=== PATIENT | female | born 1965 | race Asian ===

== ENCOUNTER 2023-11-27 10:51 | Day surgery (SDC) | payer OTHER ==
[2023-11-22 09:28] VITALS: BMI 27.7
[2023-11-27] MEDS ORDERED: CYCLOPENTOLATE 2% OPHTH SOLN 2 ML BOTTLE ONE (11:10)
[2023-11-27] MEDS ORDERED: TROPICAMIDE 1% OPHTH SOLN 15 ML BOTTLE ONE (11:11)
[2023-11-27] MEDS ORDERED: CIPROFLOXACIN 0.3% EYE DROPS 5 ML BOTTLE ONE (11:11)
[2023-11-27] MEDS ORDERED: PHENYLEPHRINE 2.5% OPTHALMIC DROP 2ML BOTTLE ONE (11:11)
[2023-11-27] MEDS: CYCLOPENTOLATE 2% OPHTH SOLN 2 ML BOTTLE OD ONE ×3 (11:20→11:29)
[2023-11-27] MEDS: CIPROFLOXACIN 0.3% EYE DROPS 5 ML BOTTLE OD ONE ×3 (11:20→11:30)
[2023-11-27] MEDS: PHENYLEPHRINE 2.5% OPHTH SOLN 15 ML BOTTLE OD ONE ×3 (11:20→11:30)
[2023-11-27] MEDS: TROPICAMIDE 1% OPHTH SOLN 15 ML BOTTLE OD ONE ×3 (11:20→11:30)
[2023-11-27] MEDS ORDERED: BSS (NA/CA/MG/K) BALANCED SALT SOLUTION OPHTH SOLN 15 ML BOTTLE ONE (11:50)
[2023-11-27] MEDS ORDERED: CARBACHOL 0.01% INTRA-OCULAR 1.5 ML VIAL ONE (11:50)
[2023-11-27] MEDS ORDERED: LIDOCAINE 1% P/F 10 MG/ML VIAL ONE (11:50)
[2023-11-27] MEDS ORDERED: NEO/POLYMYX B SULF/DEXAMETH OPHTHALMIC 5ML BOTTLE ONE (11:50)
[2023-11-27] MEDS ORDERED: TETRACAINE 0.5% OPHTH SOLN 2 ML BOTTLE ONE (11:50)
[2023-11-27] MEDS ORDERED: MIDAZOLAM HCL 2 MG/2 ML SINGLE DOSE VIAL ONE (12:13)
[2023-11-27 13:19] VITALS: TEMP 97.6
[2023-11-27 13:35] VITALS: BP 120/48; PULSE 57; RESP 17
== END 2023-11-27 13:48 | disposition home or self-care (01) ==
LOC: FASU 10:51
PROVIDERS: ATTEND Ophthalmology
PROC: 08RJ3JZ Replacement of Right Lens with Synthetic Substitute, Percutaneous Approach (ICD-10-PCS; principal; 2023-11-27 12:42)
DX: H26.8 Other specified cataract (principal)
CPT/HCPCS: 66984; V2632

== ENCOUNTER 2024-01-15 07:35 | Day surgery (SDC) | payer OTHER ==
[2024-01-09 14:02] VITALS: BMI 27.7
[2024-01-15] MEDS: CYCLOPENTOLATE 2% OPHTH SOLN 2 ML BOTTLE ONE (08:00)
[2024-01-15] MEDS: PHENYLEPHRINE 2.5% OPTHALMIC DROP 2ML BOTTLE ONE (08:00)
[2024-01-15] MEDS: TROPICAMIDE 1% OPHTH SOLN 15 ML BOTTLE ONE (08:00)
[2024-01-15] MEDS: CIPROFLOXACIN 0.3% EYE DROPS 5 ML BOTTLE ONE (08:00)
[2024-01-15] MEDS ORDERED: CARBACHOL 0.01% INTRA-OCULAR 1.5 ML VIAL ONE (08:07)
[2024-01-15] MEDS ORDERED: NEO/POLYMYX B SULF/DEXAMETH OPHTHALMIC 5ML BOTTLE ONE (08:07)
[2024-01-15] MEDS ORDERED: BSS (NA/CA/MG/K) BALANCED SALT SOLUTION OPHTH SOLN 15 ML BOTTLE ONE (08:07)
[2024-01-15] MEDS ORDERED: LIDOCAINE 1% P/F 10 MG/ML VIAL ONE (08:07)
[2024-01-15] MEDS: TETRACAINE 0.5% OPHTH SOLN 2 ML BOTTLE ONE (08:10)
[2024-01-15] MEDS ORDERED: MIDAZOLAM HCL 2 MG/2 ML SINGLE DOSE VIAL ONE (09:04)
[2024-01-15] MEDS ORDERED: ONDANSETRON 4 MG/2 ML VIAL ONE (09:13)
[2024-01-15 09:37] VITALS: RESP 16; TEMP 97.7
[2024-01-15 10:16] VITALS: BP 131/69; PULSE 55
== END 2024-01-15 10:22 | disposition home or self-care (01) ==
LOC: FASU 07:35
PROVIDERS: ATTEND Ophthalmology
PROC: 08RK3JZ Replacement of Left Lens with Synthetic Substitute, Percutaneous Approach (ICD-10-PCS; principal; 2024-01-15 09:09)
DX: H26.8 Other specified cataract (principal)
CPT/HCPCS: 66984; V2632